=== PATIENT | male | born 1985 | race Caucasian/White ===

== ENCOUNTER 2021-02-19 00:40 | Emergency (ER) | payer MEDICARE, MEDICAID ==
[~2021-02-19] VITALS: Ht 170.2 cm; Wt 91.0 kg
[2021-02-19] MEDS ORDERED: FAMOTIDINE 20MG TABLET PO ONE (01:00)
[2021-02-19] MEDS ORDERED: ONDANSETRON 4MG ODT PO ONE (01:00)
[2021-02-19] MEDS ORDERED: FAMO-134 MT (01:32)
[2021-02-19] MEDS ORDERED: ONDA8TAB13 MT (01:33)
[2021-02-19 01:52] VITALS: BP 128/73
== END 2021-02-19 01:54 | disposition home or self-care (01) ==
LOC: ER 00:40
DX: A05.9 Bacterial foodborne intoxication, unspecified (principal)
CPT/HCPCS: 93005; 99283; Q0162